=== PATIENT | male | born 1990 | race Hispanic/Latino ===

== ENCOUNTER 2023-07-26 11:38 | Emergency (ER) | payer SELFPAY ==
[2023-07-26 12:58] LABS: SARS-CoV-2 NAA Rapid Test Not Detected (NotDetected)
[2023-07-26] MEDS ORDERED: Ibuprofen 200 MG TAB ONE (13:19)
== END 2023-07-26 13:31 | disposition home or self-care (01) ==
LOC: ERS 11:38
DX: K02.9 Dental caries, unspecified (principal); Z20.822 Contact with and (suspected) exposure to COVID-19; Z87.891 Personal history of nicotine dependence
CPT/HCPCS: 87081; 87430; 99283

== ENCOUNTER 2023-08-10 17:04 | Emergency (ER) | payer SELFPAY ==
[2023-08-10] MEDS ORDERED: Ketorolac Tromethamine 30 MG/ML VIAL ONE (17:33)
== END 2023-08-10 17:50 | disposition home or self-care (01) ==
LOC: ERS 17:04
DX: K04.7 Periapical abscess without sinus (principal); F17.210 Nicotine dependence, cigarettes, uncomplicated; Z79.899 Other long term (current) drug therapy
CPT/HCPCS: 96372; 99282; J1885